=== PATIENT | male | born 1980 | race African-American/Black ===

== ENCOUNTER 2018-02-01 07:29 | Emergency (ER) | payer SELFPAY ==
[2018-02-01] MEDS ORDERED: Ketorolac Tromethamine 60 MG/2 ML VIAL ONE (08:07)
--- NOTE | 2018-02-01 09:56 | RAD ---
LUMBAR SPINE THREE VIEWS: 02/01/2018 HISTORY: Trauma. Pain. COMPARISON: 12/30/2005 FINDINGS: Six lumbar type vertebral bodies are present. The pedicles appear intact on the frontal imaging. La teral imaging demonstrates normal vertebral body height and alignment. No acute osseous abnormality. IMPRESSION: No acute findings. POS: [facility]
== END 2018-02-01 09:29 | disposition home or self-care (01) ==
LOC: ERS 07:29
DX: S39.012A Strain of muscle, fascia and tendon of lower back, initial encounter (principal); X50.9XXA Other and unspecified overexertion or strenuous movements or postures, initial encounter
CPT/HCPCS: 72100; 96372; J1885

== ENCOUNTER 2022-05-01 03:50 | Emergency (ER) | payer SELFPAY ==
[2022-05-01] MEDS ORDERED: Orphenadrine Citrate 60 MG/2 ML VIAL ONE (04:33)
== END 2022-05-01 05:32 | disposition home or self-care (01) ==
LOC: ERS 03:50
DX: M25.561 Pain in right knee (principal)
CPT/HCPCS: 96372; J2360